=== PATIENT | male | born 1995 | race Caucasian/White ===

== ENCOUNTER 2020-11-26 07:20 | Emergency (ER) | payer MEDICAID, SELFPAY ==
[2020-11-26 07:21] VITALS: BP 144/91; PULSE 110; RESP 16; TEMP 37.1; O2SAT 95; BMI 40.7
[2020-11-26 07:33] VITALS: O2SAT 95
[2020-11-26 07:34] VITALS: BP 144/97; PULSE 110; RESP 16; TEMP 37.1; O2SAT 95
--- NOTE | 2020-11-26 07:39 | EDS_ITS ---
HPI History of Present Illness Chief Complaint: Cough Informant: patient Narrative Narrative: Patient presents approximately 6 days into Covid symptoms. Both his and kids have tested positive for Covid. He has had nasal congestion dry nonproductive cough myalgias nausea and vomiting and fevers. His biggest complaint is the dry cough that wakes him up frequently. He also has the muscle aches. He is able to drink fluids and has been drinking plenty. However, if he tries to eat he gets nauseated. He did take some of his 's nausea medicine at home and he states it helped a lot. He was wondering if he could get some of that. It sounds like it was likely Zofran. He has no hemoptysis. He has no recent travel. He has no chest pain. No leg swelling. PFSH PFSH Medical History no medical history Home Medications benzonatate [Tessalon Perles] 100 mg PO TID PRN #14 cap 11/26/20 [Rx Last Taken Unknown] ondansetron 4 mg PO Q8H PRN #10 tab 11/26/20 [Rx Last Taken Unknown] Allergy/AdvReac Type Severity Reaction Status Date / Time No Known Allergies Allergy Verified 11/26/20 07:23 Social History Smoking Status: Never smoker ROS ROS ED Constitutional Constitutional ED: Reports subjective Eyes Eyes: Denies blurry vision or change in vision ENT ENT ED: Reports rhinorrhea; Denies sore throat Cardiovascular Cardiovascular: Denies chest pain or palpitations Respiratory/Chest Respiratory/Chest: Reports cough and dyspnea on exertion; Denies sputum Gastrointestinal Gastrointestinal: Reports nausea and vomiting; Denies abdominal pain or diarrhea Genitourinary Genitourinary ED: Denies dysuria Musculoskeletal Musculoskeletal: Reports myalgias Integumentary Denies rash Neurologic Neurologic: Denies headache(s) Endocrine Endocrinology: Denies polydipsia or polyuria Allergic/Immunologic Allergic/Immunologic ED: Denies urticaria EXAM Physical Exam Const Vital Signs: 11/26/20 07:21 11/26/20 07:33 11/26/20 07:34 Temperature 98.7 F 98.7 F Temperature Source Temporal Temporal Pulse Rate 110 H 110 H Respiratory Rate 16 16 Respiratory Effort Normal Non-Labored Respiratory Depth Normal Respiratory Pattern Normal Blood Pressure 144/91 H 144/97 H Blood Pressure Mean 108 112 Pulse Ox 95 95 Oxygen Delivery Method Room Air Room Air Room Air Positive well nourished, well developed and obese General Appearance ED: well developed and NAD Nutritional Appearance: obese HEENT Reports moist mucous membranes; Denies dry mucous membranes Negative for trauma Mouth ED: No dry mucous membranes Mouth: No dry mucous membranes Eyes EOMs intact bilaterally Neck no lymphadenopathy and no JVD Chest Wall inspection of chest normal Resp normal respiratory effort and clear to auscultation bilaterally Effort and Inspection: Negative for pain with movement Auscultation: Negative for rales, rhonchi or wheezes Cardio regular rate, regular rhythm and no murmurs GI normal to inspection, nondistended, normoactive bowel sounds and non-tender Palpation: soft Neuro oriented x3 Sensorium / Orientation: alert Psych mental status grossly normal Skin no rashes or lesions noted MDM MDM MDM Narrative Medical decision making narrative: 1 view x-ray of the chest looked at my me at 8:23 AM shows some multiple areas of small pneumonia. This is consistent with his diagnosis of Covid. His symptoms exposure and Covid test all point to Covid is the source. I do not think antibiotics are needed. He is not hypoxic. He can walk without hypoxia. His nausea is better. We will write for [facility]. Because he does have Covid and a BMI of 40.7, I will put an order for monoclonal therapy and I did discuss this with him. Discharge Plan Triage Chief Complaint: Cough ED Provider: Sean Bruce Dx/Rx/DC Orders Clinical Impression: COVID, Nausea & vomiting Instructions: Caring for Someone Who Has COVID-19 Prescriptions: New ondansetron 4 mg tablet,disintegrating 4 mg PO Q8H PRN (Reason: nausea and vomiting) Qty: 10 RF: 0 benzonatate [Tessalon Perles] 100 mg capsule 100 mg PO TID PRN (Reason: cough) Qty: 14 RF: 0 Other Ambulatory Orders: COVID Outpatient Monoclonal Antibody Referral (Routine) Timeframe: 1 Day Facility: [facility] - Location: [facility] Ordered By: Dr. Sean Bruce Primary Care Provider: Care Physician,No Primary Referrals: Samanta Varela MD [STAFF PHYSICIAN] - 1 Week if not improving Care Physician,No Primary [Primary Care Provider] - Disposition Disposition: Home, Self Care
[2020-11-26] MEDS: Ondansetron ODT 4 MG Tablet PO (07:42)
--- NOTE | 2020-11-26 07:55 | RAD_ITS ---
STUDY: X-RAY CHEST REASON FOR EXAM: Male, 25 years old. covid cough TECHNIQUE: Single AP portable view of the chest. COMPARISON: Comparison is made with prior study dated 07/28/2015. FINDINGS: Patchy infiltrates are seen in the left upper lobe. Mild increased markings in the right midlung. There is no demonstrated pleural abnormality. Normal size heart. Normal mediastinum and magi. Normal visualized pulmonary arteries. Normal visualized aortic arch and descending thoracic aorta. Normal visualized thoracic spine. Normal visualized ribs, clavicles, and shoulders. There is no demonstrated abnormality of the visualized soft tissue structures of the upper abdomen. RAD/Chest 1 View (Portable) IMPRESSION: Patchy left upper lobe infiltrates with mild increased markings in the right midlung. Follow-up is recommended. Electronically Signed: Martin Darnell MD at 8:34 EDT , Service support ,
[2020-11-26 08:35] VITALS: PULSE 92; RESP 16; O2SAT 93
== END 2020-11-26 08:35 | disposition home or self-care (01) ==
PROVIDERS: Emergency Provider Emergency Medicine
DX: U07.1 COVID-19 (principal); R11.2 Nausea with vomiting, unspecified
CPT/HCPCS: 71045; 87426; 99283